=== PATIENT | male | born 1990 | race Caucasian/White ===

== ENCOUNTER → 2017-04-01 | Outpatient (CLI) | payer BC ==
[2017-04-01 14:46] LABS: BASO % 0.8 %; BASO ABS # 0.04 K/uL (0-0.2); COMPLETE YES; EOS % 2.5 %; IG% 0.6 %; LYMPH % 30.6 %; LYMPH ABS # 1.56 K/uL (1.2-3.4); MEAN CELL VOLUME 84.1 fL (80-100); MEAN CORPUSCULAR HEMOGLOBIN 29.5 pg (25-34); MEAN CORPUSCULAR HGB CONC 35.1 g/dl (32-36); MEAN PLATELET VOLUME 8.8 fL (7.4-10.4); MONO % 6.1 %; NEUT % 59.4 %; PLATELET COUNT 257 K/uL (130-400); RED BLOOD COUNT 5.11 M/uL (4.7-6.1)
[2017-04-01 15:17] LABS: CALCIUM 9.2 mg/dl (8.5-10.1)
[2017-04-01 15:23] LABS: ALT/SGPT 44 U/L (12-78); BLOOD UREA NITROGEN 14 mg/dl (7-18); BUN/CREATININE RATIO 12.7 (10-20); CARBON DIOXIDE 26 mmol/L (21-32); CHLORIDE 106 mmol/L (98-107); GLUCOSE 117 mg/dl (70-99); POTASSIUM 3.6 mmol/L (3.5-5.1); SODIUM 142 mmol/L (136-145)
[2017-04-01 15:26] LABS: ALB/GLOB RATIO 1.2 (0.9-2); ALKALINE PHOSPHATASE 76 U/L (45-117); AST/SGOT 25 U/L (15-37)
[2017-04-02 06:08] LABS: ESTIMATED AVERAGE GLUCOSE 100 mg/dl; HA1C FLAG Normal (Normal)
[2017-04-05 11:26] LABS: MICROSOMAL AB 1 IU/ML (<9); T3 REVERSE **TC 90963 16 ng/dL (8-25)
== END | disposition home or self-care (01) ==
LOC: C.LAB1850 13:17
PROVIDERS: ATTEND Chiropractor
DX: M79.1 Myalgia (principal)